=== PATIENT | male | born 1995 | race Hispanic/Latino ===

== ENCOUNTER 2025-04-17 14:23 | Emergency (ER) | payer OTHER ==
[~2025-04-17] VITALS: Ht 167.6 cm; Wt 63.5 kg
--- NOTE | 2025-04-17 15:11 | ERN ---
ED Note History of Present Illness Stated Complaint: NEEDLESTICK Chief Complaint: Needle Stick Time Seen by MD: 14:43 Dictation: PATIENT IS A 29-YEAR-OLD MALE WHO WORKS AT [employer] HAS A ANALYTIC MANAGER. HE STATES THEY WERE TAKEN DOWN OF PATIENT AND THE NURSE WAS GIVEN READY TO GIVE THE PATIENT A INJECTION OF A SEDATIVE TO HIS RIGHT DELTOID. HE STATES THE PATIENT MOVED AND THE NEEDLE STUCK HIM TO HIS LEFT DISTAL QUADRICEPS IN HIS THIGH. HE STATES IT NURSE CHECKED AND PATIENT DOES NOT HAVE A HISTORY OF HIV HEPATITIS. HOWEVER HE WAS SENT OVER HERE FOR FURTHER EVALUATION AND TREATMENT OF A NEEDLE STICK INJURY. PATIENT STATES HE HAS HAD THE HEPATITIS-B SERIES Allergies: Coded Allergies: No Known Drug Allergies (Verified Allergy, Unknown, 07/30/15) Home Meds No Active Prescriptions or Reported Meds Past Medical History Past Medical History: No Pertinent History Surgical History: None RN Note Reviewed/Agreed w/PFSH: Yes Review of System Dictation CONSTITUTIONAL: NEGATIVE EXCEPT FOR HPI HEAD/FACE: NEGATIVE EXCEPT FOR HPI EENT: NEGATIVE EXCEPT FOR HPI RESPIRATORY: NEGATIVE EXCEPT FOR HPI GASTROINTESTINAL/ABDOMINAL: NEGATIVE EXCEPT FOR HPI GENITOURINARY: NEGATIVE EXCEPT FOR HPI MUSCULOSKELETAL: NEGATIVE EXCEPT FOR HPI INTEGUMENTARY: NEGATIVE EXCEPT FOR HPI NEEDLE STICK MEDIAL ASPECT OF LEFT THIGH AND QUADRICEPS NEUROLOGICAL/PSYCH: NEGATIVE EXCEPT FOR HPI HEMATOLOGIC/LYMPHATIC: NEGATIVE EXCEPT FOR HPI ALL SYSTEMS NEGATIVE, EXCEPT NOTED ABOVE. 13 POINT REVIEW OF SYSTEMS ASSESSED AND ALL NEGATIVE EXCEPT FOR ABOVE. Initial Vital Sign VS Vital Signs Date Time Temp Pulse Resp B/P (MAP) Pulse Ox O2 Delivery O2 Flow Rate FiO2 04/17/25 14:25 97.5 62 18 115/79 97 Room Air 0 Physical Exam Dictation VITAL SIGNS REVIEWED GENERAL APPEARANCE: ALERT, ORIENTED X 3, NO ACUTE DISTRESS, WELL DEVELOPED, NOURISHED. 0/10 PAIN HEAD AND FACE: NON-TRAUMATIC. EYES: PERRL, PINK CONJUNCTIVAS, EYELID NO TRAUMA, ANTERIOR CHAMBER WITH ARCUS SENILIS. EARS: PINNAS INTACT AND NO SIGNS OF TRAUMA OR ERYTHEMA EAR CANALS CLEAR AND NO DISCHARGE TM NO ERYTHEMA NOSE: NO DISCHARGE, NO BLEEDING. OROPHARYNX: MOUTH NORMAL, TONGUE PINK, PHARYNX CLEAR,NO ERYTHEMA, TONSILS NO EXUDATES, NO ABSCESSES NOTED, MUCOUS MEMBRANE MOIST NECK: SUPPLE, NON-TENDER, NO THYROMEGALY, NO MASSES, NO JVD, NO BRUITS BREAST:DEFERRED CHEST:NO TENDERNESS, NO CREPITUS, NO PARADOXICAL MOVEMENT, NO RETRACTIONS LUNGS:CLEAR, WELL-VENTILATED, SYMMETRIC, NO RALES, NO WHEEZING, NO RHONCHI, NO STRIDOR, GOOD BREATH SOUNDS BILATERALLY HEART: REGULAR RATE, REGULAR RHYTHM, NO MURMUR, NO GALLOPS VASCULAR: NO PERIPHERAL EDEMA, ABDOMEN: SOFT, POSITIVE BOWEL SOUNDS, NONDISTENDED, NO GUARDING, NONTENDER, NO REBOUND, NO MASSES NO HEPATOMEGALY, NO SPLENOMEGALY, NO ARAIZA'S SIGN, NO HERNIAS. RECTAL: DEFERRED GENITAL: DEFERRED NEUROLOGICAL: NORMAL SPEECH, MOTOR FUNCTION INTACT, SENSORY FUNCTION INTACT MUSCULOSKELETAL: NECK NONTENDER, FULL RANGE OF MOTION, BACK NONTENDER, FULL RANGE OF MOTION, EXTREMITIES: NONTENDER, FULL RANGE OF MOTION SKIN: COLOR PINK, DRY, SUPERFICIAL PUNCTURE WOUND TO MEDIAL ASPECT OF DISTAL LEFT THIGH LYMPHATIC: DEFERRED Results (Laboratory/Radiology) Laboratory/Radiology Laboratory Tests Test 04/17/25 15:28 HIV (1&2) Antibody Non-Reactive (Negative) HIV P24 Antigen, Qualitative Non-Reactive (Negative) Labs Reviewed?: Yes ED Course ED Course Orders Procedure Category Date Status Time Hiv 1-2 W/Reflex To LAB 04/17/25 Complete Confirm 15:03 Hepatitis B Core Total LAB 04/17/25 In Process 15:03 Hepatitis B Surface LAB 04/17/25 In Process Antibody 15:03 Hepatitis C Ab LAB 04/17/25 In Process W/Reflex To Pcr 15:03 Vital Signs Date Time Temp Pulse Resp B/P (MAP) Pulse Ox O2 Delivery O2 Flow Rate FiO2 04/17/25 14:25 97.5 62 18 115/79 97 Room Air 0 1700/[employer]PER[employer] HAS NOT MADE MULTIPLE ATTEMPTS TO CALL THE HOTLINE AT [phone] AND NUMBERS ALWAYS BUSY OR THERE WAS A FAST BUSY. I MADE PATIENT AWARE THAT HIS HIV RESULTS WERE NEGATIVE HE NEEDS TO FOLLOW UP HIS INDUSTRIAL MEDICINE DOCTOR TOMORROW WITHOUT FAIL FOR MANAGEMENT. I EXPLAINED TO PATIENT THE POST EXPOSURE PROPHYLAXIS AND HE DECLINED AT THIS TIME. Medical Decision Making MDM MEDICAL DECISION-MAKING BASED ON HIV AND HEPATITIS PER PROTOCOL FOR NEEDLE STICK EXPOSURE HIV NEGATIVE MULTIPLE TO US MADE TO THE HOTLINE NATIONALLY AND UNABLE TO GET THROUGH TO A PERSON. PATIENT WAS OFFERED POST EXPOSURE PROPHYLAXIS AND HE DECLINED. PATIENT TOLD TO FOLLOW UP WITH HIS INDUSTRIAL MEDICINE DOCTOR FROM [facility] TOMORROW WITHOUT FAIL DX & DISP Disposition: Discharge Departure Impression: Primary Impression: Needlestick injury of thigh Condition: Stable Scripts No Active Prescriptions or Reported Meds Additional Instructions: FOLLOW-UP WITH PRIMARY CARE PROVIDER IN 1 TO 2 DAYS. TAKE MEDICATIONS DIRECTED HERE IN THE EMERGENCY ROOM. OKAY TO CONTINUE HOME MEDICATIONS UNLESS OTHERWISE DISCUSSED DURING YOUR VISIT IN THE EMERGENCY ROOM TODAY. RETURN TO YOUR NEAREST EMERGENCY ROOM IF SYMPTOMS WORSEN OR IF THERE IS NO IMPROVEMENT. CALL 911 IF YOU NEED IMMEDIATE ASSISTANCE. TAKE TYLENOL OR MOTRIN [id number] NEEDED AND IF NO CONTRAINDICATIONS ARE PRESENT. INCREASE ORAL HYDRATION. A WOUND CULTURE OR URINE CULTURE WAS ORDERED HERE IN THE EMERGENCY ROOM DEPARTMENT PLEASE FOLLOW-UP WITH PRIMARY CARE PROVIDER AND ADVISE THEM TO GET REPEAT PORTS FROM OUR FACILITY. IF YOU HAD ANY KENAN WRAP/SPLINTS THAT WERE APPLIED HERE, PLEASE DO NOT REMOVE THEM UNTIL YOU SEE YOUR PRIMARY CARE OR SPECIALTY. FOLLOW UP WITH THE INDUSTRIAL MEDICINE DOCTOR FROM [facility] TOMORROW FOR MANAGEMENT. Referrals: VINCENT FERRERA MD (PCP) Time of Disposition: 17:06 I have reviewed the case, and I agree with, Diagnosis and Plan DES WHEELER NP Apr 17, 2025 15:11
[2025-04-17 16:07] LABS: HIV 1&2 ANTIBODY Non-Reactive (Negative); HIV-1 p24 Antigen Non-Reactive (Negative)
[2025-04-17 17:22] VITALS: BP 116/69; PULSE 78; RESP 16; TEMP 98.2; O2SAT 97
[2025-04-18 12:23] LABS: HEPATITIS B CORE AB TOTAL Non-Reactive (Nonreactive); HEPATITIS B SURFACE ANTIBODY Positive (Reactive); HEPATITIS C ANTIBODY Non-Reactive (Nonreactive)
== END 2025-04-17 17:23 | disposition home or self-care (01) ==
LOC: EDH 14:23
DX: S71.131A Puncture wound without foreign body, right thigh, initial encounter (principal); Z77.21 Contact with and (suspected) exposure to potentially hazardous body fluids; W46.0XXA Contact with hypodermic needle, initial encounter; Y99.0 Civilian activity done for income or pay; Y92.89 Other specified places as the place of occurrence of the external cause
CPT/HCPCS: 36415; 86701; 86704; 86706; 86803; 87390; 99283